=== PATIENT | male | born 1940 | race Asian ===

== ENCOUNTER → 2021-03-16 | Outpatient (CLI) | payer MEDICARE, OTHER | END | disposition home or self-care (01) | LOC: RADPV 07:37 | PROVIDERS: ATTEND Legal Medicine | DX: I70.0 Atherosclerosis of aorta (principal); R05 Cough; M47.814 Spondylosis without myelopathy or radiculopathy, thoracic region | CPT/HCPCS: 71046 ==

== ENCOUNTER → 2021-03-21 | Outpatient (CLI) | payer MEDICARE, OTHER | END | disposition home or self-care (01) | LOC: RADMN 07:40 | PROVIDERS: ATTEND Legal Medicine | DX: J47.9 Bronchiectasis, uncomplicated (principal); I70.0 Atherosclerosis of aorta; I25.10 Atherosclerotic heart disease of native coronary artery without angina pectoris; I51.7 Cardiomegaly; M47.814 Spondylosis without myelopathy or radiculopathy, thoracic region | CPT/HCPCS: 71250 ==